=== PATIENT | female | born 1950 | race Hispanic/Latino ===

== ENCOUNTER 2018-11-17 10:06 | Outpatient (CLI) | payer MEDICARE ==
--- NOTE | 2018-11-17 14:54 | Magnetic Resonance Report ---
BILATERAL BREAST MRI WITHOUT AND WITH CONTRAST: 11/17/18 10:06:00 CLINICAL: Personal history of left breast cancer. She underwent a left partial mastectomy in 1998 and received whole breast radiation. This was followed by 5 years of tamoxifen. COMPARISON:11/08/18 screening mammogram.. TECHNIQUE: Axial 1.0-mm T1 without, axial high resolution 2.0-mm T2 and axial 1.0-mm dynamic Vibrant high-resolution postcontrast T1 fat saturation sequences on a 1.5 Supriya magnet. The examination was performed with an 8 channel dedicated [place] breast coil. Post processing with CAD and subtraction was performed on an [employer] workstation. 12.0 cc of Multihance was injected without incident for the contrast portion of the exam. Consent was obtained prior to the administration of the contrast. FINDINGS: Right: Minimal background parenchymal enhancement. No mass or suspicious enhancement. No suspicious lymph nodes. Left: Minimal background parenchymal enhancement. No mass or suspicious enhancement. IMPRESSION: Normal study. Recommend routine mammographic screening. BI-RADS 1 - - Negative
== END 2018-11-17 10:07 | disposition home or self-care (01) ==
LOC: SPVIMAG 10:06
PROVIDERS: ATTEND Surgery
DX: R92.8 Other abnormal and inconclusive findings on diagnostic imaging of breast (principal); Z85.3 Personal history of malignant neoplasm of breast
CPT/HCPCS: A9577; C8908; 77049

== ENCOUNTER 2021-01-17 09:50 | Outpatient (CLI) | payer MEDICARE ==
--- NOTE | 2021-01-17 12:06 | Mammography Report ---
DIGITAL SCREENING MAMMOGRAM WITH CAD, 01/17/2021 CLINICAL INFORMATION / INDICATION: Routine screening mammography. SCREENING MAMMO. Previous left divya st biopsy and surgery in 1998 with radiation therapy in 1999. TECHNIQUE: Digital bilateral 2D mammography was obtained in the craniocaudal and mediolateral obliqu e projections. This examination was interpreted with the benefit of Computer-Aided Detection analysis . COMPARISON: 01/17/20, 11/08/18 FINDINGS: Breast Density: The breasts are heterogeneously dense, which may obscure small masses. No dominant mass, suspicious calcifications, or architectural distortion in either breast. Left breast postoperative findings and radiation changes appear stable. Right breast surgical scar is unchanged. IMPRESSION: No mammographic evidence of malignancy. Follow up recommendation: Routine yearly BI-RADS Category 2: Benign. A "normal" or negative report should not discourage follow up or biopsy of a clinically significant f inding. A written summary of these findings will be mailed to the patient. The patient will be entered into a mammography reporting system which will generate a reminder letter for the patient's next appointmen t at the appropriate interval. [employer] recommends yearly mammograms starting at age 40 and continuing as l brittaney as a woman is in good health. Breast MRI is recommended for women with an approximate 20-25% or greater lifetime risk of breast cancer, including women with a strong family history of breast or ova otis cancer or who have been treated for Hodgkin's disease. Signer Name: Bautista Beck MD Signed: 01/17/2021 12:02 PM Workstation Name: [email or web address]
== END 2021-01-17 09:51 | disposition home or self-care (01) ==
LOC: SPVWC 09:50
PROVIDERS: ATTEND Surgery
DX: Z12.31 Encounter for screening mammogram for malignant neoplasm of breast (principal)
CPT/HCPCS: 77067